=== PATIENT | female | born 1975 | race Caucasian/White ===

== ENCOUNTER 2017-03-10 01:40 | Emergency (ER) | payer OTHER ==
[~2017-03-10] VITALS: Ht 154.9 cm; Wt 70.9 kg
[~2017-03-10 01:40] MED LIST: CEFDINIR300 MG PO; FLAGYL500 MG PO; FLEXERIL10 MG PO; NICOTINE PATCH1 EAC2 TD; NOHOMEMEDS; OXAYDO5 MG PO; PREDNISONE10 MG PO; VALIUM5 MG PO
[2017-03-10] MEDS ORDERED: ZANAFLEX2 MG PO (03:18)
[2017-03-10] MEDS ORDERED: NORCO 5/3251 TABLET PO (03:18)
[2017-03-10 03:29] VITALS: BP 132/64
== END 2017-03-10 03:30 | disposition home or self-care (01) ==
LOC: EME 01:40
DX: S43.401A Unspecified sprain of right shoulder joint, initial encounter (principal); X50.0XXA Overexertion from strenuous movement or load, initial encounter; Z91.040 Latex allergy status; Z88.2 Allergy status to sulfonamides; F17.200 Nicotine dependence, unspecified, uncomplicated
CPT/HCPCS: 73030; 99281; 99284